=== PATIENT | male | born 1990 | race Hispanic/Latino ===

== ENCOUNTER 2017-07-17 21:36 | Emergency (ER) | payer SELFPAY | END 2017-07-17 22:17 | disposition home or self-care (01) | LOC: EDH 21:36 | DX: S81.802A Unspecified open wound, left lower leg, initial encounter (principal); V19.9XXA Pedal cyclist (driver) (passenger) injured in unspecified traffic accident, initial encounter; Y93.89 Activity, other specified; Y92.89 Other specified places as the place of occurrence of the external cause; Y99.8 Other external cause status | CPT/HCPCS: 99281 ==